=== PATIENT | female | born 1945 | race Caucasian/White ===

== ENCOUNTER 2022-06-05 10:02 | Outpatient (CLI) | payer MEDICARE, SELFPAY | END 2022-06-05 10:03 | disposition home or self-care (01) | LOC: INJ CL 10:02 | PROVIDERS: Visit Provider Family Medicine | DX: M51.36 Other intervertebral disc degeneration, lumbar region (principal); M54.16 Radiculopathy, lumbar region | CPT/HCPCS: 62323; J0702; Q9966 ==

== ENCOUNTER 2024-04-07 08:26 | Outpatient (CLI) | payer MEDICARE, SELFPAY | END 2024-04-07 08:27 | disposition home or self-care (01) | LOC: INJ CL 08:28 | PROVIDERS: Visit Provider Family Medicine | DX: M54.16 Radiculopathy, lumbar region (principal); M51.36 Other intervertebral disc degeneration, lumbar region | CPT/HCPCS: 62323; J0702; Q9966 ==